=== PATIENT | female | born 1970 | race Caucasian/White ===

== ENCOUNTER → 2016-10-04 | Outpatient (CLI) | payer OTHER | LOC: GMA 12:20 | PROVIDERS: ATTEND Nurse Practitioner Acute Care | DX: N39.0 Urinary tract infection, site not specified (principal) ==

== ENCOUNTER → 2017-09-18 | Outpatient (CLI) | payer OTHER ==
--- NOTE | 2017-09-18 15:31 | MRI ---
EXAM DESCRIPTION: Lumbar Spine w/o Contrast CLINICAL HISTORY: 47 years, Female, LOW BACK PAIN bilateral leg pain COMPARISON: Plain radiographs October 04 FINDINGS: Bone marrow signal mildly heterogeneous but not worrisome. Conus terminates at L1. L1-2 unremarkable. At L2-3 minimal bulge asymmetric to the right with facet degenerative change. Slight right foraminal narrowing. At L3-4 mild bulge, asymmetric to left with slight impingement on the exiting left L3 root. Mild facet degenerative change. At L4-5 narrowing with mild bulge asymmetric to the left. Mild facet Degenerative change. L5-S1 within normal limits IMPRESSION: Bulging disc L3-4 asymmetric to left with impingement on the exiting left L3 root. Mild bulge L2-3 asymmetric to the right with foraminal narrowing. Mild disc bulge L4-5 asymmetric to the left Electronically signed by: Chris Duran MD 09/18/2017 3:30 PM [facility]
== END | disposition home or self-care (01) ==
LOC: MRI 10:16
PROVIDERS: ATTEND Family Medicine
DX: M48.07 Spinal stenosis, lumbosacral region (principal)

== ENCOUNTER → 2018-11-18 | Outpatient (CLI) | payer OTHER | LOC: LAB.O 16:50 | PROVIDERS: ATTEND Family Medicine | DX: D45 Polycythemia vera (principal) ==

== ENCOUNTER → 2019-07-02 | Outpatient (CLI) | payer OTHER | LOC: GMAJ 11:29 | PROVIDERS: ATTEND Family Medicine | DX: I10 Essential (primary) hypertension (principal); E11.9 Type 2 diabetes mellitus without complications; R39.15 Urgency of urination ==

== ENCOUNTER 2019-09-27 05:26 | Day surgery (SDC) | payer OTHER ==
[2019-09-27] MEDS: PROPARACAINE 0.5% OPHTH SOL 15 ML BTTL RIGHT_EYE ONE ×2 (08:22→08:41)
[2019-09-27] MEDS: LIDOCAINE 1% 2 ML VIAL INJ ONE ×2 (08:23→08:41)
[2019-09-27] MEDS: TOBRAMYCIN SULF 0.3 % OPHTH OINT 1 APPLIC RIGHT_EYE ONE ×2 (08:24→08:41)
[2019-09-27] MEDS: DEXAMETHASONE 0.1% OPHTH SOL 1 DROP RIGHT_EYE ONE ×2 (08:24→08:41)
[2019-09-27] MEDS: BRIMONIDINE 0.2% OPHTH DROPS RIGHT_EYE ONE ×2 (08:25→08:41)
[2019-09-27] MEDS: MOXIFLOXACIN HCL (OPHTH) 1 DROP DROPS RIGHT_EYE ONE ×2 (08:26→08:41)
[2019-09-27] MEDS ORDERED: MIDAZOLAM INJ 2 MG/2 ML VIAL ONE ×2 (08:28→08:48)
== END 2019-09-27 09:45 | disposition home or self-care (01) ==
LOC: AMB 05:26
PROVIDERS: ATTEND Ophthalmology
DX: H25.041 Posterior subcapsular polar age-related cataract, right eye (principal); Z79.899 Other long term (current) drug therapy
CPT/HCPCS: 00142; 66984; J2250